=== PATIENT | male | born 1980 | race African-American/Black ===

== ENCOUNTER 2021-08-23 22:56 | Emergency (ER) | payer MEDICAID | END 2021-08-24 01:53 | disposition left against medical advice (07) | LOC: ER 22:56 | DX: Z53.21 Procedure and treatment not carried out due to patient leaving prior to being seen by health care provider (principal) ==

== ENCOUNTER 2021-08-24 20:57 | Emergency (ER) | payer MEDICAID ==
[~2021-08-24] VITALS: Ht 195.6 cm; Wt 82.0 kg
[2021-08-25] MEDS ORDERED: ONDANSETRON HCL 4MG/2ML INJ IV STA (02:03)
[2021-08-25] MEDS ORDERED: MORPHINE SULFATE 4 MG/ML CPJ (NOT FOR IM USE) IV STA (02:03)
[2021-08-25] MEDS ORDERED: SODIUM CHLORIDE 0.9% 1,000 ML IV ONE (02:15)
[2021-08-25 03:03] LABS: BASOPHILS % 0.4 % (0.0-2.0); EOSINOPHILS % 2.5 % (0.0-5.0); HEMATOCRIT. 40.9 % (42.0-52.0); HEMOGLOBIN. 14.9 g/dL (14.0-18.0); LYMPHOCYTES % 27.3 % (20.0-50.0); MEAN CORPUSCULAR HEMOGLOBIN 31.5 pg (28.0-32.0); MEAN CORPUSCULAR VOLUME 86.3 fL (80.0-94.0); MEAN PLATELET VOLUME 8.4 fl (7.4-10.4); MONOCYTES % 8.5 % (2.0-8.0); NEUTROPHILS % 61.3 % (40.0-76.0); PLATELET 260 x1000/uL (130-400); RED BLOOD CELL COUNT 4.73 mill/uL (4.7-6.1); RED CELL DISTRIBUTION WIDTH 14.4 % (11.6-14.6)
[2021-08-25 03:09] LABS: CHLORIDE 107 mEq/L (98-107)
[2021-08-25 03:45] LABS: CLARITY URINE CLEAR (CLEAR); COLOR URINE YELLOW (YELLOW); KETONES URINE NEGATIVE (NEGATIVE); LEUKOCYTE ESTERASE URINE NEGATIVE (NEGATIVE); NITRITE URINE NEGATIVE (NEGATIVE); OCCULT BLOOD URINE NEGATIVE (NEGATIVE); PROTEIN URINE NEGATIVE (NEGATIVE); SPECIFIC GRAVITY URINE 1.013 (1.005-1.030)
[2021-08-25] MEDS ORDERED: IOHEXOL-300 100 ML BOTTLE ONE (04:07)
[2021-08-25] MEDS ORDERED: KETOROLAC 30MG/ML VIAL IV ONE (05:00)
[2021-08-25 05:46] VITALS: BP 109/83
== END 2021-08-25 05:49 | disposition left against medical advice (07) ==
LOC: ER 20:57 → CANBEDREQ 08-25 16:23
DX: K37 Unspecified appendicitis (principal); Z87.828 Personal history of other (healed) physical injury and trauma
CPT/HCPCS: 36415; 74177; 80053; 81003; 83690; 85025; 96361; 96374; 96375; 99285; J1885; J2270; J2405; J7030; Q9967

== ENCOUNTER 2021-11-23 02:36 | Emergency (ER) | payer MEDICAID | END 2021-11-23 04:48 | disposition left against medical advice (07) | LOC: ER 02:36 | DX: Z53.21 Procedure and treatment not carried out due to patient leaving prior to being seen by health care provider (principal) ==